=== PATIENT | female | born 1985 | race Caucasian/White ===

== ENCOUNTER 2019-09-26 06:06 | Day surgery (SDC) | payer BC, OTHER ==
[~2019-09-26] VITALS: Ht 165.1 cm; Wt 74.4 kg
[~2019-09-26 06:06] MED LIST: FOLI1 PO; IBUP800 PO; Verotin-Gr Cap1 EACH PO
[2019-09-26] MEDS ORDERED: Sprintec1 EACH (06:40)
== END 2019-09-26 09:02 | disposition home or self-care (01) ==
LOC: ORSCSDS 06:06
PROVIDERS: Obstetrics & Gynecology
PROC: 0UBC7ZX Excision of Cervix, Via Natural or Artificial Opening, Diagnostic (ICD-10-PCS; principal; 2019-09-26 07:30)
DX: D06.0 Carcinoma in situ of endocervix (principal)
CPT/HCPCS: J0171; J0690; J7120